=== PATIENT | male | born 1950 | race Asian ===

== ENCOUNTER 2023-08-12 10:49 | Inpatient (IN) | payer MEDICARE, MEDICAID ==
[~2023-08-12] VITALS: Ht 170.2 cm; Wt 61.7 kg
[~2023-08-12 10:49] MED LIST: LEVO-72 PO; PERCT PO; PROMVCC5L PO
[2023-08-12 11:19] LABS: BASOPHILS % (AUTO) 1.1 % (0.0-2.0); EOSINOPHILS % (AUTO) 13.3 % (1.0-6.0); HEMATOCRIT 31.1 % (41-53); HEMOGLOBIN 9.8 g/dL (13.5-17.5); LYMPHOCYTES # (AUTO) 1.8 K/uL (1.0-4.8); LYMPHOCYTES % (AUTO) 20.6 % (22.0-44.0); MEAN CORPUSCULAR HEMOGLOBIN 21.4 pg (26.0-34.0); MEAN CORPUSCULAR HGB CONC 31.4 G/dL (31.0-37.0); MEAN CORPUSCULAR VOLUME 68 fL (80-100); MONOCYTES # (AUTO) 0.7 K/uL (0.1-1.0); MONOCYTES % (AUTO) 8.2 % (2.0-9.0); NEUTROPHILS # (AUTO) 4.8 K/uL (1.8-7.7); NEUTROPHILS % (AUTO) 56.8 % (40.0-70.0); PLATELET COUNT (AUTO) 716 K/uL (150-450); RED BLOOD CELL COUNT(AUTO) 4.56 MIL/uL (4.50-5.90); RED CELL DISTRIBUTION WIDTH 20.4 % (11.5-14.5); WHITE BLOOD COUNT (AUTO) 8.5 K/uL (4.5-11.0)
[2023-08-12 11:33] LABS: ANION GAP 9 mmol/L (8-16); CALCIUM, TOTAL 8.7 mg/dL (8.8-10.5); CARBON DIOXIDE 28 mmol/L (22-29); CHLORIDE 103 mmol/L (98-107); CREATININE 1.13 mg/dL (0.60-1.30); GLOMERULAR FILTR. RATE CALC > 60 mL/min (>60); GLUCOSE,RANDOM 133 mg/dL (70-110); POTASSIUM 4.3 mmol/L (3.5-5.1); SODIUM SERUM 140 mmol/L (136-145); UREA NITROGEN, BLOOD 12 mg/dL (7-18)
[2023-08-12 11:39] LABS: B-TYPE NATRIURETIC PEPTIDE 617 pg/mL (0-100)
[2023-08-12 11:40] LABS: TROPONIN I-HIGH SENSITIVITY 41 ng/L (<76)
[2023-08-12 11:44] LABS: ALANINE AMINOTRANSFERASE 21 U/L (12-78); ALKALINE PHOSPHATASE 65 U/L (46-116); ASPARTATE AMINOTRANSFERASE 25 U/L (15-37); BILIRUBIN,TOTAL 0.5 mg/dL (0.1-1.0); TOTAL PROTEIN, SERUM 8.7 g/dL (6.4-8.2)
[2023-08-12] MEDS: IPRATROPIUM BROMIDE 0.5 MG/2.5 ML NEB SOLUTION NEB ONE (11:49)
[2023-08-12] MEDS: ALBUTEROL SULFATE 2.5 MG/0.5 ML NEB SOLUTION NEB ONE (11:49)
[2023-08-12 11:52] VITALS: PULSE 70; RESP 15; O2SAT 99
[2023-08-12] MEDS: MethylPREDNISolone SOD SUCC 125 MG/2 ML VIAL IVP ONE (11:52)
[2023-08-12 11:53] VITALS: PULSE 70; RESP 15; O2SAT 99
[2023-08-12] MEDS: NITROGLYCERIN 2% (1 GM=INCH) OINTMENT PACKET TP ONE (12:46)
[2023-08-12] MEDS: FUROSEMIDE 20 MG/2 ML VIAL IVP ONE (12:47)
[2023-08-12] MEDS: CefTRIAXone 1 GM/DEXTROSE 50 ML IV ONE (12:47)
[2023-08-12] MEDS: AZITHROMYCIN 500 MG/NS 250 ML IV ONE (13:30)
[2023-08-12 13:54] LABS: COVID AG,FIA SOURCE NASAL SWAB
[2023-08-12 13:56] LABS: APPEARANCE,URINE CLEAR (CLEAR); BILIRUBIN,URINE NEGATIVE (NEGATIVE); COLOR,URINE COLORLESS (YELLOW); GLUCOSE, URINE (UA) NEGATIVE (NEGATIVE); KETONES,URINE NEGATIVE (NEGATIVE); LEUKOCYTE ESTERASE ,URINE NEGATIVE (NEGATIVE); NITRATE,URINE NEGATIVE (NEGATIVE); OCCULT BLOOD,URINE NEGATIVE (NEGATIVE); PROTEIN,URINE NEGATIVE (NEGATIVE); SPECIFIC GRAVITIY, URINE 1.007 (1.003-1.030); UROBILINOGEN,URINE <=1.0 mg/dL (<=1.0)
[2023-08-12 14:12] LABS: SARS-COV2 (COVID) ANTIGEN,FIA Negative (Negative)
[2023-08-12] MEDS ORDERED: PROMETHAZINE HCL/PHENYLEPHRINE/CODEINE 5 ML ORAL.SYG PO PRN ×2 (14:45→22:15)
[2023-08-12 15:28] LABS: TROPONIN I-HIGH SENSITIVITY 39 ng/L (<76)
[2023-08-12 21:00] VITALS: BP 116/64; PULSE 78; RESP 18; TEMP 98.3
[2023-08-12 23:24] VITALS: BP 120/62; PULSE 89; RESP 18; TEMP 97.9
[2023-08-12] MEDS ORDERED: ONDANSETRON HCL 4 MG/2 ML VIAL IVP PRN (23:45)
[2023-08-13] VITALS (10 sets, daily range): BP systolic 101–132; BP diastolic 52–92; PULSE 72–95; RESP 16–20; TEMP 97.5–98.1; O2SAT 95–100
[2023-08-13] MEDS: MethylPREDNISolone SOD SUCC 40 MG/ML VIAL IVP SCH (00:57)
[2023-08-13 02:30] LABS: TROPONIN I-HIGH SENSITIVITY 31 ng/L (<76)
[2023-08-13] MEDS ORDERED: 0.9% SODIUM CHLORIDE 5 ML NEB SOLUTION NEB ONE (03:24)
[2023-08-13] MEDS: ALBUTEROL SULFATE 2.5 MG/0.5 ML NEB SOLUTION NEB PRN (03:26)
[2023-08-13] MEDS: OxyCODONE HCL/ACETAMINOPHEN 5-325 MG TABLET PO PRN (05:19)
[2023-08-13 07:48] LABS: BASOPHILS % (AUTO) 0.1 % (0.0-2.0); EOSINOPHILS % (AUTO) 0.1 % (1.0-6.0); HEMATOCRIT 28.9 % (41-53); HEMOGLOBIN 9.1 g/dL (13.5-17.5); LYMPHOCYTES # (AUTO) 1.5 K/uL (1.0-4.8); LYMPHOCYTES % (AUTO) 13.2 % (22.0-44.0); MEAN CORPUSCULAR HEMOGLOBIN 21.5 pg (26.0-34.0); MEAN CORPUSCULAR HGB CONC 31.5 G/dL (31.0-37.0); MEAN CORPUSCULAR VOLUME 68 fL (80-100); MONOCYTES # (AUTO) 0.2 K/uL (0.1-1.0); MONOCYTES % (AUTO) 1.8 % (2.0-9.0); NEUTROPHILS # (AUTO) 9.9 K/uL (1.8-7.7); NEUTROPHILS % (AUTO) 84.8 % (40.0-70.0); PLATELET COUNT (AUTO) 634 K/uL (150-450); RED BLOOD CELL COUNT(AUTO) 4.23 MIL/uL (4.50-5.90); RED CELL DISTRIBUTION WIDTH 19.9 % (11.5-14.5); WHITE BLOOD COUNT (AUTO) 11.7 K/uL (4.5-11.0)
[2023-08-13 08:02] LABS: HEMOGLOBIN A1C 5.8 % (3.8-5.6)
[2023-08-13 08:07] LABS: ALANINE AMINOTRANSFERASE 21 U/L (12-78); ALBUMIN 2.8 g/dL (3.4-5.0); ALKALINE PHOSPHATASE 72 U/L (46-116); ANION GAP 9 mmol/L (8-16); ASPARTATE AMINOTRANSFERASE 23 U/L (15-37); BILIRUBIN,TOTAL 0.4 mg/dL (0.1-1.0); CALCIUM, TOTAL 8.6 mg/dL (8.8-10.5); CARBON DIOXIDE 27 mmol/L (22-29); CHLORIDE 99 mmol/L (98-107); CREATININE 1.03 mg/dL (0.60-1.30); GLOMERULAR FILTR. RATE CALC > 60 mL/min (>60); GLUCOSE,RANDOM 159 mg/dL (70-110); POTASSIUM 4.3 mmol/L (3.5-5.1); SODIUM SERUM 135 mmol/L (136-145); TOTAL PROTEIN, SERUM 8.2 g/dL (6.4-8.2); UREA NITROGEN, BLOOD 21 mg/dL (7-18)
[2023-08-13 08:10] LABS: TROPONIN I-HIGH SENSITIVITY 32 ng/L (<76)
[2023-08-13 08:12] LABS: CHOL/HDL RATIO 4.3 (4.2-7.3); THYROID STIMULATING HORMONE 0.57 uIU/mL (0.36-3.74)
[2023-08-13] MEDS: ENOXAPARIN SODIUM 40 MG/0.4 ML PF SYRINGE SQ SCH (08:13)
[2023-08-13] MEDS: ALBUTEROL SULFATE 2.5 MG/0.5 ML NEB SOLUTION NEB SCH (08:25)
[2023-08-13] MEDS ORDERED: IPRATROPIUM BROMIDE 0.5 MG/2.5 ML NEB SOLUTION NEB PRN (08:30)
[2023-08-13] MEDS: AZITHROMYCIN 250 MG TABLET PO SCH (08:56)
[2023-08-13] MEDS: ATORVASTATIN CALCIUM 20 MG TABLET PO SCH (08:57)
[2023-08-13] MEDS: PANTOPRAZOLE SODIUM 40 MG DR TABLET PO SCH (08:57)
[2023-08-13] MEDS ORDERED: SODIUM CHLORIDE 0.9% 250 ML IV ONE (13:32)
[2023-08-13] MEDS: CefTRIAXone 1 GM/DEXTROSE 50 ML IV SCH (13:34)
[2023-08-13] MEDS: IPRATROPIUM BROMIDE 0.5 MG/2.5 ML NEB SOLUTION NEB SCH (14:15)
[2023-08-13] MEDS: ACETAMINOPHEN 325 MG TABLET PO PRN (15:54)
[2023-08-13] MEDS ORDERED: ALBUTEROL SULFATE 2.5 MG/0.5 ML NEB SOLUTION NEB PRN (21:30)
[2023-08-14] VITALS: BP 109/63; PULSE 94; RESP 18; TEMP 97.5
[2023-08-14 04:36] VITALS: BP 102/53; PULSE 76; RESP 18; TEMP 97.9
[2023-08-14] MEDS ORDERED: LEVO-72 PO (07:55)
[2023-08-14] MEDS ORDERED: AZIT-103 PO (07:55)
[2023-08-14] MEDS ORDERED: PRED5TAB2 PO (07:55)
[2023-08-14 08:00] VITALS: BP 105/63; PULSE 83; RESP 18; TEMP 97.6
[2023-08-14] MEDS: FUROSEMIDE 20 MG/2 ML VIAL IVP ONE (08:35)
[2023-08-14 08:42] VITALS: PULSE 85; RESP 18; O2SAT 95
[2023-08-14 08:57] VITALS: PULSE 87; RESP 16; O2SAT 98
== END 2023-08-14 11:00 | disposition home or self-care (01) | DRG 291 ==
LOC: EMS 10:50 → 5S 19:12
PROVIDERS: ADMIT Family Medicine; ATTEND Family Medicine
DX: I50.33 Acute on chronic diastolic (congestive) heart failure (principal); J18.9 Pneumonia, unspecified organism; J96.20 Acute and chronic respiratory failure, unspecified whether with hypoxia or hypercapnia; J44.1 Chronic obstructive pulmonary disease with (acute) exacerbation; J44.0 Chronic obstructive pulmonary disease with (acute) lower respiratory infection; I34.0 Nonrheumatic mitral (valve) insufficiency; Z20.822 Contact with and (suspected) exposure to COVID-19; E78.5 Hyperlipidemia, unspecified; Z87.891 Personal history of nicotine dependence; Z82.5 Family history of asthma and other chronic lower respiratory diseases; Z86.11 Personal history of tuberculosis
CPT/HCPCS: 71045; 80053; 80061; 81003; 83036; 83735; 83880; 84443; 84484; 85025; 93005; 93306; 94640; 99285; G0378; J0456; J0696; J1650; J1940; J2920; J2930; J7050; 36415-L1; 36415-TC; J7613